=== PATIENT | female | born 1975 | race Caucasian/White ===

== ENCOUNTER 2024-10-09 22:08 | Emergency (ER) | payer BC ==
[~2024-10-09] VITALS: Ht 157.5 cm; Wt 90.0 kg
[2024-10-09 22:12] VITALS: BP 141/87; PULSE 107; RESP 17; TEMP 98.9; O2SAT 99
[2024-10-10 01:48] LABS: HEMATOCRIT. 42.6 % (36.0-48.0); HEMOGLOBIN. 14.5 g/dL (12.0-16.0); MEAN CORPUSCULAR HEMOGLOBIN 29.8 pg (28.0-32.0); MEAN CORPUSCULAR VOLUME 87.8 fL (81.0-99.0); MEAN PLATELET VOLUME 8.5 fl (7.4-10.4); PLATELET 297 x1000/uL (130-400); RED BLOOD CELL COUNT 4.86 mill/uL (4.2-5.4); WHITE BLOOD COUNT 13.4 x1000/uL (4.5-11.0)
[2024-10-10 01:50] LABS: CHLORIDE 98 mEq/L (98-107); POTASSIUM 3.2 mEq/L (3.5-5.1); SODIUM 136 mEq/L (136-145)
[2024-10-10 01:51] LABS: CARBON DIOXIDE 25 mEq/L (21-32)
[2024-10-10] MEDS: ACETAMINOPHEN 1000MG/100ML 100 ML IV ONE (01:55)
[2024-10-10] MEDS: ONDANSETRON HCL 4MG/2ML INJ IV STA (01:55)
[2024-10-10 01:56] LABS: CREATININE 0.8 mg/dL (0.6-1.0); GLUCOSE 172 mg/dL (70-105); UREA NITROGEN BLOOD 13 mg/dL (9-23)
[2024-10-10 01:57] LABS: ETHANOL BLOOD < 10 mg/dL (<10)
[2024-10-10 01:58] LABS: TROPONIN I HIGH SENSITIVITY 19 ng/L (3.0-34)
[2024-10-10 02:01] LABS: HCG SCREEN NEGATIVE; PARTIAL THROMBOPLASTIN TIME 26.2 sec (23.4-31.0); PROTHROMBIN TIME 10.9 sec (9.6-11.0)
[2024-10-10 02:10] LABS: DIFFERENTIAL COMMENT 1
[2024-10-10] MEDS: KETOROLAC 15MG/ML VIAL IV ONE (03:06)
[2024-10-10] MEDS: MAGNESIUM/ALUMINUM HYDROXIDE/SIMETHICONE 30ML UDC PO ONE (03:06)
[2024-10-10 03:52] LABS: PLATELET ESTIMATE NORMAL
[2024-10-10 04:17] LABS: TROPONIN I HIGH SENSITIVITY 18 ng/L (3.0-34)
[2024-10-10 04:19] LABS: ALANINE AMINOTRANSFERASE 20 IU/L (10-49)
[2024-10-10 04:20] LABS: ALBUMIN 5.1 g/dL (3.2-4.8); ASPARTATE AMINOTRANSFERASE 30 IU/L (<34); BILIRUBIN DIRECT < 0.1 mg/dL (<=3.0); BILIRUBIN TOTAL 0.5 mg/dL (0.1-1.0); PROTEIN TOTAL 8.9 g/dL (6.0-8.3)
[2024-10-10] MEDS ORDERED: ACET-2708 MT (05:04)
[2024-10-10] MEDS ORDERED: PROT40 MT (05:04)
[2024-10-10] MEDS ORDERED: MAG355OR21 MT (05:04)
[2024-10-10] MEDS ORDERED: ONDA4TAB50 MT (05:04)
== END 2024-10-10 05:42 | disposition home or self-care (01) ==
LOC: ER 22:08
DX: R10.13 Epigastric pain (principal); I10 Essential (primary) hypertension; Z79.899 Other long term (current) drug therapy
CPT/HCPCS: 99285; 80076; 80048; 80320; 84703; 83880; 83690; 85025; 85610; 85730; 84484; 36415; 71045; 74176; 93005; 96374; 96375; J1885; J2405; Z7610 ×2; G0480; J0131